=== PATIENT | female | born 1965 | race Caucasian/White ===

== ENCOUNTER 2017-10-14 09:46 | Emergency (ER) | payer OTHER, MEDICARE ==
[~2017-10-14 09:46] MED LIST: ADVIL200 M2 PO; AMANTADINE100 M1 PO; AMPYRA10 M1; BACLOFEN10 M1 PO; BACLOFEN20 M1 PO; DEXTROAMP-AMPHE10 MG PO; LIDODERM1 EACH TOP; LYRICA75 M1 PO; NAPROSYN500 M1 PO; REBIF 44 M44 MCG/0.5 INJ; VEMLIDY25 MG PO; VITAMIN D250000 UNIT PO
--- NOTE | 2017-10-14 10:32 | ED GENERAL ADULT ---
History of Present Illness General Chief Complaint: General Adult Stated Complaint: BIBA FEVER, LETHARGY, HX MS Source: patient Exam Limitations: no limitations Vital Signs & Intake/Output Vital Signs & Intake/Output Vital Signs Date Time Temp Pulse Resp B/P B/P Pulse O2 O2 Flow FiO2 Mean Ox Delivery Rate 10/14 0952 97.8 75 20 184/101 95 Room Air Allergies Coded Allergies: No Known Allergies (09/15/16) Reconcile Medications Amantadine HCl (Amantadine) 100 MG CAPSULE 1 CAP PO DAILY MS (Reported) Baclofen 10 MG TABLET 1 TAB PO BID MUSCLE SPASMS (Reported) Baclofen 20 MG TABLET 1 TAB PO QPM MUSCLE SPASMS (Reported) Dalfampridine (Ampyra) (Unknown Strength) TAB.ER.12H (Unknown Dose) UNKNOWN ( Reported) Dextroamphetamine/Amphetamine (Dextroamp-Amphetamin 10 MG Tab) 10 MG TABLET 1 TAB PO BID STIMULANT (Reported) Ergocalciferol (Vitamin D2) (Vitamin D2) 50,000 UNIT CAPSULE 1 CAP PO QSUN SUPPLEMENT (Reported) Ibuprofen (Advil) 200 MG TABLET 2 PO AD PRN PAIN (Reported) Interferon Beta-1a/Albumin (Rebif 44 Mcg/0.5 Ml Syringe) 44 MCG/0.5 ML SYRINGE 44 MCG INJ Tuesday MS (Reported) Lidocaine (Lidoderm) 5 % ADH..PATCH 1 PAT TOP DAILY PRN back pain may wear up to 12 hours Naproxen (Naprosyn) 500 MG TABLET 1 TAB PO BID PRN back pain Pregabalin (Lyrica) 75 MG CAPSULE 1 CAP PO BID NERVE PAIN (Reported) Tenofovir Alafenamide Fumarate (Vemlidy) 25 MG TABLET 1 TAB PO DAILY LIVER ( Reported) Triage Note: PT BIBA FROM HOME WITH C/O 1 DAY HX OF INCREASED URINARY FREQUENCY, ABDOMINAL DISCOMFORT, AND VOMITING x1 TODAY. PT ALSO REPORTS SUBJECTIVE FEVERS, ALTHOUGH NONE ON ARRIVAL. PT STARTED NEW CHEMOTHERAPY REGIMEN ON TUESDAY. HYPERTENSIVE ON ARRIVAL; ALL OTHER VSS Triage Nurses Notes Reviewed? yes HPI: Patient is a 52 y/o female w/ PMH of MS on monthly chemotherapy and steroid infusions presents several days after her latest dose with nausea and vomiting. She also complains of abdominal discomfort and dysuria and frequency. Upon my initial encounter she is uncomfortable and actively nauseous. Past History Travel History Traveled to [place] past 21 day No Medical History Any Pertinent Medical History? see below for history Neurological: NONE EENT: NONE Cardiovascular: NONE Respiratory: NONE Gastrointestinal: NONE Hepatic: NONE Renal: NONE Musculoskeletal: chronic back pain Psychiatric: NONE Endocrine: NONE Blood Disorders: NONE Cancer(s): NONE WARD MAID/Reproductive: NONE Surgical History Surgical History: non-contributory Psychosocial History What is your primary language Other Family History Hx Contributory? No Review of Systems Review of Systems Constitutional: Reports: see HPI, weakness. EENTM: Reports: no symptoms. Respiratory: Reports: no symptoms. Cardiovascular: Reports: no symptoms. GI: Reports: nausea, vomiting. Genitourinary: Reports: dysuria, frequency. Musculoskeletal: Reports: no symptoms. Skin: Reports: no symptoms. Neurological/Psychological: Reports: no symptoms. Hematologic/Endocrine: Reports: no symptoms. Immunologic/Allergic: Reports: no symptoms. All Other Systems: Reviewed and Negative Physical Exam Physical Exam General Appearance: alert, awake, anxious, mild distress Comments: HEENT: Inspection of the head reveals a normocephalic cranium with no signs of trauma. Ophtho: Extraocular muscles are intact and pupils are equal and reactive to light bilaterally with no afferent pupillary defect. The sclera are noninjected , and there is no obvious discharge. Neck: The trachea is midline, there is no obvious asymmetry or mass over the thyroid, and there is no midline cervical spine tenderness Respiratory: The lungs are clear and equal to auscultation bilaterally without wheezes, rales, or rhonchi. The patient exhibits no signs of labored breathing. Cardiac: Regular rhythm and non-tachycardic without appreciable murmurs on auscultation. No obvious JVD. GI: Acive nausea and vomiting. Examination of the abdomen reveals diffuse abdominal pain without focality. There is negative He's sign, negative McBurney's point tenderness, negative [place] sign, negative Barreto-Rajan sign, and no signs of peritonitis whatsoever on percussion or deep palpation. The skin is intact with no sign of trauma or infection. : Deferred Neuro: The patient is oriented to person, place, time, and situation, with no obvious focal motor deficits. There were no sensory deficits, and the patient exhibit purposeful movement of all 4 extremities. Cranial nerves II through XII are intact, and gait is normal. Behavioral: Anxious regarding symptoms. Dermatologic: Dermatologic examination reveals no diffuse rashes or exanthems, no petechiae, no ecchymoses, and no other signs of erythema or infection. Core Measures ACS in differential dx? Yes CVA/TIA Diagnosis: No Sepsis Present: No Sepsis Focused Exam Completed? No Progress Differential Diagnoses I considered the following diagnoses in my evaluation of the patient: Allegedly abnormality, postchemotherapy nausea, acute coronary syndrome, intra-abdominal surgical pathology, multiple other possibilities. Plan of Care: Orders Procedure Date/time Status URINALYSIS 10/14 1024 Complete TROPONIN LEVEL 10/14 1024 Complete LIPASE 10/14 1024 Complete COMPREHENSIVE METABOLIC PANEL 10/14 1024 Complete CBC WITHOUT DIFFERENTIAL 10/14 1024 Complete EKG 10/14 1024 Active Laboratory Tests 10/14/17 1033: Anion Gap 9, Estimated GFR > 60, BUN/Creatinine Ratio 32.5 H, Glucose 131 H, Calcium 9.3, Total Bilirubin 1.3, AST 27, ALT 47, Alkaline Phosphatase 62, Troponin I < 0.01, Total Protein 7.0, Albumin 4.3, Globulin 2.7, Albumin/ Globulin Ratio 1.6, Lipase 179, CBC w Diff NO MAN DIFF REQ, RBC 4.61, MCV 87.6, MCH 30.7, MCHC 35.0, RDW 12.8, MPV 7.0 L, Gran % 75.3 H, Lymphocytes % 17.4 L , Monocytes % 6.8, Eosinophils % 0.2, Basophils % 0.3, Absolute Granulocytes 4.4 , Absolute Lymphocytes 1.0 L, Absolute Monocytes 0.4, Absolute Eosinophils 0, Absolute Basophils 0 10/14/17 1027: Urine Color YEL, Urine Clarity CLEAR, Urine pH 7.5, Ur Specific Tye 1.015, Urine Protein NEG, Urine Ketones NEG, Urine Nitrite NEG, Urine Bilirubin NEG, Urine Urobilinogen 0.2, Ur Leukocyte Esterase NEG, Ur Microscopic EXAM NOT REQUIRED, Urine Hemoglobin NEG, Urine Glucose NEG Initial ED EKG: normal axis, none, normal intervals, normal p-waves, normal QRS complex, normal sinus rhythm, nonspecific ST T wave chg Comments: Patient presented several days after her most recent chemotherapy infusion with nausea and vomiting. I was concerned about electrolyte abnormalities or other metabolic dyscrasias so we obtained laboratory studies which thankfully were unremarkable. I provided ondansetron and 1 L of crystalloid resuscitation, and a reassessment the patient felt dramatically improved. In fact, she was requesting discharge home. Given her mild chest discomfort at arrival, I had also obtained a troponin and ECG, both of which were unremarkable. I'm not concerned about acute coronary syndrome at this time. I feel that outpatient management is reasonable, and she will follow-up with her PCP for reassessment this coming week. Medical screening examination otherwise negative, patient stable at time of discharge. Departure Departure Time of Disposition: 1217 Disposition: HOME OR SELF CARE Condition: Stable Clinical Impression Primary Impression: Vomiting Qualifiers: Vomiting type: unspecified Vomiting Intractability: unspecified Nausea presence: with nausea Qualified Code: R11.2 - Nausea with vomiting, unspecified Referrals: Roby Smith MD (PCP/Family) Additional Instructions: Please use the ondansetron (Zofran) to control your nausea at home and stay hydrated. Call your primary physician to schedule an appointment for reassessment this coming week, and return to the emergency department in the meantime for any new or worsening symptoms. Departure Forms: Customer Survey General Discharge Information Prescriptions: Current Visit Scripts Ondansetron (Zofran Odt) 1 TAB SL Q6 PRN NAUSEA/VOMITING #14 TAB Critical Care Note Critical Care Note Critical Care Time: non-applicable
[2017-10-14 10:49] LABS: ABSOLUTE BASOPHIL COUNT 0 /CUMM (0.0-0.2); ABSOLUTE EOSINOPHIL COUNT 0 /CUMM (0.0-0.7); ABSOLUTE GRANULOCYTE CT 4.4 /CUMM (1.4-6.5); ABSOLUTE MONOCYTE COUNT 0.4 /CUMM (0.10-0.60); BASOPHIL % 0.3 % (0.0-2.0); EOSINOPHIL % 0.2 % (0-5); GRANULOCYTE % 75.3 % (42.2-75.2); HEMATOCRIT 40.4 % (37-47); MEAN CORPUSCULAR HGB 30.7 PG (27.0-31.0); MEAN CORPUSCULAR VOLUME 87.6 FL (81.0-99.0); PLATELET COUNT 230 /CUMM (130-400); RBC DISTRIBUTION WIDTH 12.8 % (11.5-14.5); RED BLOOD CELL CT 4.61 /CUMM (4.20-5.40); WHITE BLOOD CELL COUNT 5.9 /CUMM (4.8-10.8)
[2017-10-14] MEDS ORDERED: ZOFRAN ODT4 M1 SL (12:20)
[2017-10-14 12:25] VITALS: BP 150/110
== END 2017-10-14 12:28 ==
LOC: ERH 09:46
PROVIDERS: Student in an Organized Health Care Education/Training Program
DX: R11.2 Nausea with vomiting, unspecified (principal); R10.9 Unspecified abdominal pain; R30.0 Dysuria; R35.0 Frequency of micturition
CPT/HCPCS: 81003; 93005; 93010; 96374; J2405